=== PATIENT | male | born 2000 | race Caucasian/White ===

== ENCOUNTER 2020-01-20 19:16 | Emergency (ER) | payer MEDICAID ==
[~2020-01-20] VITALS: Ht 175.3 cm; Wt 63.5 kg
[2020-01-20 19:20] VITALS: BP_SYST 129
--- NOTE | 2020-01-20 20:24 | NUR ---
Patient to [facility] to [facility] for evaluation. Side rails up. Report given to AURELIANO HALL.
--- NOTE | 2020-01-20 20:35 | NUR ---
Dr. Talamantes chair side for pt gogo
--- NOTE | 2020-01-20 20:40 | NUR ---
Pt BIB family to ED with 2-day history of right forearm pain associated with redness and swelling. Patient attributes his pain to being bitten by an insect which developed into an abscess. Patient's pain is currently mild to moderate in severity. Pain is worse with touch. Pain is alleviated with when left alone
--- NOTE | 2020-01-20 20:52 | NUR ---
Dr. Talamantes chairside for procedure, well tolerated
[2020-01-20] MEDS ORDERED: LIDOCAINE 1% 10 MG/ML, 20 ML MDV INJ ONE (21:00)
[2020-01-20] MEDS ORDERED: cefTRIAXone 1 GM in LIDOCAINE 1%, 20 ML MDV 2.1 ML IM ONE (21:00)
[2020-01-20 21:15] VITALS: BP_SYST 129
--- NOTE | 2020-01-20 21:15 | NUR ---
Patient given written and verbal discharge instructions and verbalizes understanding. ER MD discussed with patient the results and treatment provided. Patient in stable condition. ID arm band removed. Rx of Keflex given. Patient educated on pain management and to follow up with PMD. Pain Scale 0/10 Opportunity for questions provided and answered. Medication side effect fact sheet provided.
== END 2020-01-20 21:15 | disposition home or self-care (01) ==
LOC: SED 19:16
DX: L02.413 Cutaneous abscess of right upper limb (principal)
CPT/HCPCS: 10060; 96372; 99283; J0696; J2001